=== PATIENT | male | born 1965 | race Two or more races ===

== ENCOUNTER 2018-09-21 12:48 | Emergency (ER) | payer SELFPAY ==
[2018-09-21 13:11] VITALS: BP 128/70; PULSE 80; TEMP 97.7; BMI 27.4
--- NOTE | 2018-09-21 13:54 | PDOC ---
History of Present Illness - General Chief Complaint: Laceration Stated Complaint: LACERATION Time Seen by Provider: 09/21/18 13:24 History Source: Patient Exam Limitations: No Limitations - History of Present Illness Initial Comments: 09/21/18 patient was moving a heavy table when the table fell causing him to until side of his finger and incurring a large laceration along the medial aspect of left thumb. Patient was not having crusted injury. States is able to move finger. Washed at home. Occurred: reports: just prior to arrival Severity: reports: mild, moderate Pain Location: reports: upper extremity (left thumb) Modifying Factors: improves with: None Associated Symptoms (Fall): denies symptoms Past History - Travel Traveled outside of the country in the last 30 days: No Close contact w/someone who was outside of country & ill: No - Past Medical History Allergies/Adverse Reactions: Allergies Allergy/AdvReac Type Severity Reaction Status Date / Time No Known Allergies Allergy Verified 09/21/18 12:53 Home Medications: Ambulatory Orders NK [No Known Home Medication] 09/21/18 COPD: No - Suicide/Smoking/Psychosocial Hx Smoking History: Never smoked Review of Systems - Review of Systems Able to Perform ROS?: Yes Is the patient limited [place] proficient: Yes Constitutional: Yes: Symptoms Reported, See HPI HEENTM: Yes: Symptoms Reported, See HPI Respiratory: No: Symptoms reported Integumentary: Yes: Symptoms Reported Neurological: Yes: Symptoms reported All Other Systems: Reviewed and Negative *Physical Exam - Vital Signs Last Vital Signs Temp Pulse Resp BP Pulse Ox 97.7 F 80 16 128/70 99 09/21/18 12:53 09/21/18 12:53 09/21/18 12:53 09/21/18 12:53 09/21/18 12:53 - Physical Exam General Appearance: Yes: Nourished, Appropriately Dressed, Apparent Distress, Mild Distress HEENT: positive: EOMI, JS, TMs Normal Neck: positive: Supple. negative: Tender Respiratory/Chest: positive: Lungs Clear Gastrointestinal/Abdominal: positive: Soft Extremity: positive: Normal Capillary Refill, Normal Range of Motion, Other. negative: Normal Inspection Integumentary: positive: Normal Color, Dry, Other (in 2 cm laceration along the radial aspect of left thumb from IPG joint and extending to distal tip of finger. Laceration runs along edge of nail but not involving nail bed. Patient has full range of motion to finger with good sensation intact to the distal aspect.) Neurologic: positive: mine technician II-XII NML intact, Fully Oriented, Alert, Normal Mood/ Affect, Normal Response, Motor Strength 5/5 Procedures - Laceration/Wound Repair Left Finger Wound Length: to 2.5 cm Wound Explored: clean Wound's Depth, Shape: superficial Irrigated w/ Saline: Yes Betadine Prep: Yes Wound Repaired With: Sutures Suture Size/Type: 5:0, proline Number of Sutures: 4 Layer Closure: No Splint Applied: Yes Progress Note - Progress Note Progress Note: Finger laceration repaired *DC/Admit/Observation/Transfer Diagnosis at time of Disposition: Finger laceration Qualifiers: Encounter type: initial encounter Finger: thumb Damage to nail status: without damage Foreign body presence: without foreign body Laterality: left Qualified Code(s): S61.012A - Laceration without foreign body of left thumb without damage to nail, initial encounter - Discharge Dispostion Disposition: HOME Condition at time of disposition: Stable Decision to Admit order: No - Referrals - Patient Instructions Printed Discharge Instructions: DI for Laceration Repair Additional Instructions: Rest, elevate, avoid strenuous activity or heavy lifting until sutures are removed Leave dressing on for the next 24 hours, Then may remove dressing gently and wash area with soap and water. Reapply bacitracin ointment and dressing daily for the next 5 days On day #6 keep the wound protected and cover as needed until sutures are removed allowing wound to start to dry May use Tylenol or Motrin for pain relief Suture removal in : 10-14 Days - Post Discharge Activity Forms/Work/School Notes: Back to Work
== END 2018-09-21 14:41 | disposition home or self-care (01) ==
LOC: JERFT 12:48
PROC: 0HQGXZZ Repair Left Hand Skin, External Approach (ICD-10-PCS; principal; 2018-09-21)
DX: S61.012A Laceration without foreign body of left thumb without damage to nail, initial encounter (principal); W20.8XXA Other cause of strike by thrown, projected or falling object, initial encounter; Y93.89 Activity, other specified; Y92.9 Unspecified place or not applicable
CPT/HCPCS: 99282-25